=== PATIENT | female | born 2000 | race Caucasian/White ===

== ENCOUNTER 2021-09-05 08:00 | Outpatient (RCR) | payer MEDICAID, SELFPAY ==
--- NOTE | 2021-09-05 14:28 | BH.COMM ---
Communication Note - Communication with Client Communication Note: Met with pt to complete initial paperwork. No significant changes since pre-admission screening. Completed [place] Suicide Screening. Pt presents as low to moderate risk. Pt denies any active suicidal ideations, plan, or intent as of 09/05/21. Pt has history of self-injurious behaviors via cutting and burning but denies any in the past 10 years. Pt reports history of several prior suicide attempts from ages [age] in which she was stopped by family members each time. Reports these attempts consisted of lacerations to the wrist or placing bags over her head. Reports going to the [facility] for cutting her wrist on one occasion, resulting in stitches but not hospitalization as pt reports telling the doctor she did not know why she had cut herself but that it was not with suicidal intent. She reports a history of passive suicide ideation without specific plan or intent. Pt admits to a suicidal gesture earlier this year in which pt held a knife to her chest for several seconds when upset, but reports she did not truly want to at the time. The patient was admitted to [facility] from August 16 to August 21 due to suicidal ideation and paranoia. Pt admits to having thoughts of and passive SI about once a week at present, and notes these thoughts are fleeting and last no longer than a few seconds. Denies any plan or intent to act on these thoughts and her family are her biggest protective factor. No access to weapons. Future oriented and reports ability to maintain safety. Does not present as imminent risk due to no active SI, plan, or intent. Case discussed with Dr. Valentine with plan to admit to [facility] level of care with dx of Unspecified psychosis, F29.
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
[2021-09-06 10:53] VITALS: BP 117/69; PULSE 82
--- NOTE | 2021-09-06 10:56 | BH.COMM ---
Communication Note - Communication with Client Communication Note: Pt started IOP tx yesterday and was evaluated by Dr. Vega today. Pt was deemed inappropriate for IOP tx at this time due to her psychosis as pt is unable to participate in groups effectively or even engage in individual counseling. Dr. Vega recommended pt voluntarily go to the ER to get admitted to a psychiatric hospital to have her medications adjusted quickly. Dr. Vega also stated pt can go to her outpatient provider and get a medication adjustment. Pt did not meet criteria for involuntary hospitalization (see psychiatrist evaluation). This therapist spoke with pt and her mother. Pt and mother both preferred pt not be admitted and instead they want to get a medication adjustment. Mother and pt reported they will call the outpatient provider (pt's PCP who started pt on Abilify) today. Therapist offered a referral to [facility] to see a senior staff psychologist, but pt and mother declined at this time. Pt feels more comfortable with her PCP. Dr. Vega gave a medication recommendation of Zyprexa 5mg nightly and to be taken off Abilify. This information was communication to pt and her mother. They accept the risks and benefits and are aware pt can call IOP and return when more stable. Pt is able to return to IOP following a medication adjustment which will hopefully reduce psychosis and improve concentration.
--- NOTE | 2021-09-06 11:31 | PCM.BH.PSYEV ---
Psychiatric Evaluation Initial Evaluation Initial Evaluation: The patient is a 21-year-old female who is engaged to be and has a possible history of bipolar disorder who was referred to the [facility] IOP program by her primary care doctor. The patient was admitted to [facility] from August 16 to August 21 due to suicidal ideation and paranoia. The patient states she has been having racing thoughts, erratic mood and paranoid thoughts for several months now. According to the staff the patient was not able to complete her activities of daily living very well but is being closely observed by her mother and her fianc?. The patient states that I am supposed to get . The patient is an unreliable historian as she gives conflicting, inconsistent information to various staff providers at the IOP program. The patient makes statements such as that people are talking about her and following her. On occasion she states that it is hard to watch TV because the TV is talking to her. But later the patient feels only that everything is about her. During the interval the patient states that she does not know how old IM. The patient at times says I am speaking ridiculously. I cannot gather my thoughts. Her speech is quiet at times she mumbles and states I do not know what I am trying to say. She does admit that people want to hurt me with words and I deserve it. She states that it is very scary. She states that she has voices in her head that do not come from the outside but they say that people do not like me and they say I am a horrible person. She also states I have taken away so much from people when I was told I was a teenager. I am unable to get a reliable history from the patient although according to the charts and confirmed by the patient that she smokes marijuana a few times a day and she took methamphetamine in the past but states she has not taken methamphetamine for several years. She is anxious with racing thoughts and has a lot of nausea. She states that she has not vomited at all lately. She is able to keep full food down and has not been losing weight in the last few weeks. Appetite has been decreased and she gets nauseated. She admits to some passive thoughts that she would not care if she . According to records she has had fleeting, brief suicidal ideation but she denies it currently and states that she has no plan for suicide. The patient is not sure what medication she is on and has told some people that her provider is her primary care doctor but also told this interviewer that she has a psych nurse practitioner at [facility] that she saw her recently 1 time since her discharge from [facility]. Is unclear what the true situation is. The patient had a psychiatric admission 10 years ago and has had a psychiatrist in the past but according to this interview the patient says she has had lots of past psychiatric admissions and states that she attempted suicide once a year or more. She cannot remember any of the meds she has been on but she says she has been on a lot of medications in the past. Medications: Uncertain but possibly Abilify 2 mg p.o. daily, unknown doses of Lexapro and Ativan Mental status exam: The patient is a very thin 21-year-old female who is seen wearing a mask during the interview and is casually dressed and groomed with fair hygiene. She has no psychomotor agitation and is mildly psychomotor slowed. She tries to be cooperative but is unable to give a good history due to her psychotic status. Eye contact is poor and the patient often sits with a closed posture. Her speech is quiet and at times she mumbles but it is fluent and is able to be deciphered. It is not pressured. Mood is overall depressed. Affect is constricted but at times becomes less constricted. Thought process is somewhat disorganized and the patient changes topic at times but it is less of flight of ideas then more a inability to really know what she wants to say. She does admit to delusions of paranoia and delusions of reference. Possible auditory hallucinations versus internal self-deprecating thoughts. Reality testing is not intact. Intelligence is average. Judgment is poor. Insight is limited. Diagnoses 1. Psychosis, NOS #2 marijuana use disorder #3 history of methamphetamine use disorder #4 history of being diagnosed with bipolar disorder Plan: The patient will not start the IOP at [facility] as she is not medically able or psychologically able to participate in the IOP program due to her psychosis. The patient is unable to take in information well and due to her psychosis is unable to participate in groups effectively or even engage in individual counseling. The patient's mother will be called to pick her up and discussed with the patient and the counselor discussed with the patient's mother that we would really recommend the patient be readmitted but that the patient does not meet criteria for involuntary admission currently. She does not represent a danger to herself or others definitively and with the fianc? and mother watching over her I do not feel she meets pink slip criteria. I would recommend voluntary admission for the patient however. The patient at least needs to follow-up with her psych current psychiatric provider and needs to get on a higher dose of medication to eliminate her psychosis which may be due to bipolar disorder and may be being exacerbated by marijuana use. I would recommend possibly that Abilify 2 mg be discontinued and Zyprexa 5 mg started and increased to 10 mg after several days if the patient tolerates the medication. Records should be obtained or the patient should be referred to a psychiatric provider who is well acquainted with her history as she does seem to have a long psych history but due to her current situation, reliable history is unable to be obtained. I would strongly recommend that the patient stop marijuana as it may be causing or worsening her psychosis.
--- NOTE | 2021-09-06 11:44 | BH.DR.ITP ---
Initial Treatment Plan Patient Information Visit Information: ADMISSION DATE: EXPECTED LOS: 4-6 weeks Problems/Symptoms Problem #1:: Psychosis rendering patient unable to participate in IOP program.
--- NOTE | 2021-09-06 14:00 | BH.DS ---
Discharge Summary - Demographics Date of Admission:: 09/05/21 Discharge Date: 09/06/21 Presenting Problems at Admission:: Pt is a 21-year-old female with a history mood instability and potential bipolar disorder. Pt was admitted to [facility] from 08/16/21-08/21/21 due to suicidal ideations and paranoia. At intake pt reported racing thoughts, erratic moods for the past several months, poor functioning, depression and suicidal ideations. Since discharge pt reported improved symptoms, however, pt still experiencing lack of sleep, low appetite, and daily panic attacks. Endorses hopelessness, worthlessness, and anger outbursts. Pt struggling to complete her ADLs and at time of admission reported her paranoia to be mild, but supports report it as concerning. Pt's symptoms are impacting her overall functioning and relationships. Discharge Diagnoses:: Psychosis, NOS; marijuana use disorder ; history of methamphetamine use disorder; history of being diagnosed with bipolar disorder Reason for Discharge:: [facility] psychiatrist, Dr. Vega, met with pt for pt's initial psychiatric evaluation. Dr. Vega deemed pt inappropriate for IOP tx at this time due to psychosis, difficulty concentrating, and paranoia. See psychiatric evaluation and communication note for more information. - Treatment Progress During Treatment & Response: No progress to document. Pt attended one full day of IOP tx. Pt appeared withdrawn and anxious during group. Pt receptive to discharging from [facility] to get stabilized on medication. Issues Still to be Addressed:: Psychosis, paranoia, anger, anxiety, depressive symptoms, and substance use history. Discharge Recommendations/Instructions:: Dr. Vega recommended pt voluntarily go to the ER to get admitted to a psychiatric hospital to have her medications adjusted quickly. Dr. Vega also stated pt can go to her outpatient provider and get a medication adjustment. Pt did not meet criteria for involuntary hospitalization (see psychiatrist evaluation). This therapist spoke with pt and her mother. Pt and mother both preferred pt not be admitted and instead they want to get a medication adjustment. Mother and pt reported they will call the outpatient provider (pt's PCP who started pt on Abilify) today. Therapist offered a referral to [facility] to see a rehabilitation psychologist, but pt and mother declined at this time. Pt feels more comfortable with her PCP. Discharge Handout: Complete Discharge Handout with client on aftercare options and continuity of care.
== END 2021-09-06 14:18 | disposition home or self-care (01) ==
LOC: BHIOP 08:00
PROVIDERS: Referring Provider Psychiatry & Neurology Psychiatry; Visit Provider Psychiatry & Neurology Psychiatry
DX: F29 Unspecified psychosis not due to a substance or known physiological condition (principal); Z91.51 Personal history of suicidal behavior; F12.99 Cannabis use, unspecified with unspecified cannabis-induced disorder
CPT/HCPCS: 99214; H2012; T1002